=== PATIENT | female | born 1940 | race African-American/Black ===

== ENCOUNTER 2019-08-10 10:11 | Inpatient (IN) ==
[2019-08-10] MEDS ORDERED: GLUCAGON 1 MG VIAL IM PRN (12:13)
[2019-08-10] MEDS ORDERED: DEXTROSE 10% 250 ML BAG IV PRN (12:13)
[2019-08-10] MEDS ORDERED: ONDANSETRON 4 MG/2 ML VIAL IV PRN (12:13)
[2019-08-10 13:21] LABS: Basophils % 0.4 % (0.0-0.8); Eosinophils # 0.1 10*3/uL (0.0-0.87); Eosinophils % 1.7 % (0.00-10.9); Hematocrit 42.5 VOL% (35.7-47.0); Hemoglobin 13.3 GM/DL (12.0-16.0); Immature Granulocytes % 0.4 %; Immature Granulocytes Absolute 0.03 #; Lymphocytes # 1.1 10*3/uL (1.4-4.0); Lymphocytes % 15.3 % (21.3-54.2); Mean Corpuscular HGB Conc 31.3 GM/DL (32-36); Mean Corpuscular Volume 87.8 FL (87-102); Monocytes % 13.4 % (1.7-12.7); Neutrophils % 68.8 % (38.7-73.9); Platelet Count 460 T/CUMM (130-400); Red Blood Count 4.84 MC/CUMM (3.8-5.5); Red Cell Distribution Width 15.1 % (9.3-17.3)
[2019-08-10 13:44] LABS: Alanine Aminotransferase 197 U/L (13-56); Albumin 2.6 G/DL (3.4-5.0); Alkaline Phosphatase 115 U/L (45-117); Aspartate Amino Transferase 65 U/L (0-37); Bilirubin,Total < 0.39 MG/DL (0.2-1.0); Blood Urea Nitrogen 12 MG/DL (7-18); Calcium 9.7 MG/DL (8.5-10.1); Estimated Glom Filtration Rate 94 ML/MIN; Glucose 129 MG/DL (74-106); Osmolality,Calculated 265.5 MOS/KG (273-304); Total Protein 7.8 G/DL (6.4-8.3)
[2019-08-10] MEDS: SODIUM CHLORIDE 0.45% 1,000 ML IV SCH (13:55)
[2019-08-10 15:38] LABS: Apearance,Urine CLEAR (Clear); Bacteria,Urine Occasional /HPF (Few); Bilirubin,Urine Negative (Negative); Blood, Urine Negative (Negative); Glucose,Urine (UA) >=500 mg/dL (Negative); Ketones,Urine Negative (Negative); Nitrite,Urine Negative (Negative); Protein,Urine Negative; RBC,Urine 1 /HPF (0-4); Squamous Epithelial Cell,Urine Occasional /HPF (0-10); Urine Color Yellow (Yellow); Urine Urobilinogen < 2.0 EU/DL (0.2-1.0); WBC,Urine <1 /HPF (0-6)
[2019-08-10] MEDS: INSULIN LISPRO 100 UNIT/ML SUBCUT SCH ×2 (16:19→21:44)
[2019-08-10] MEDS: ENOXAPARIN 40 MG/0.4 ML SYRINGE SUBCUT SCH (21:43)
[2019-08-10] MEDS: DOCUSATE SODIUM 100 MG CAPSULE PO SCH (21:44)
[2019-08-11 06:50] LABS: Risk Ratio 4.19; VLDL CHOLESTEROL 28.2 MG/DL
[2019-08-11] MEDS: INSULIN LISPRO 100 UNIT/ML SUBCUT SCH ×4 (09:12→23:01)
[2019-08-11] MEDS: SODIUM CHLORIDE 0.45% 1,000 ML IV SCH (09:16)
[2019-08-11] MEDS: PANTOPRAZOLE 40 MG TABLET PO SCH (09:17)
[2019-08-11] MEDS: DOCUSATE SODIUM 100 MG CAPSULE PO SCH ×2 (09:17→21:20)
[2019-08-11] MEDS: ENOXAPARIN 40 MG/0.4 ML SYRINGE SUBCUT SCH (21:20)
[2019-08-12] MEDS: SODIUM CHLORIDE 0.45% 1,000 ML IV SCH (05:28)
[2019-08-12] MEDS: INSULIN LISPRO 100 UNIT/ML SUBCUT SCH ×4 (08:50→21:20)
[2019-08-12] MEDS: DOCUSATE SODIUM 100 MG CAPSULE PO SCH ×2 (08:51→21:20)
[2019-08-12] MEDS: PANTOPRAZOLE 40 MG TABLET PO SCH (08:51)
[2019-08-12] MEDS: ENOXAPARIN 40 MG/0.4 ML SYRINGE SUBCUT SCH (21:20)
[2019-08-13] MEDS: SODIUM CHLORIDE 0.45% 1,000 ML IV SCH ×2 (00:35→20:48)
[2019-08-13] MEDS: INSULIN LISPRO 100 UNIT/ML SUBCUT SCH ×4 (08:49→21:07)
[2019-08-13] MEDS: PANTOPRAZOLE 40 MG TABLET PO SCH (08:49)
[2019-08-13] MEDS: DOCUSATE SODIUM 100 MG CAPSULE PO SCH ×2 (08:50→20:48)
[2019-08-13] MEDS: ENOXAPARIN 40 MG/0.4 ML SYRINGE SUBCUT SCH (20:48)
[2019-08-14] MEDS: INSULIN LISPRO 100 UNIT/ML SUBCUT SCH ×4 (07:44→20:30)
[2019-08-14] MEDS: PANTOPRAZOLE 40 MG TABLET PO SCH (08:43)
[2019-08-14] MEDS: DOCUSATE SODIUM 100 MG CAPSULE PO SCH ×2 (08:43→20:30)
[2019-08-14] MEDS: ENOXAPARIN 40 MG/0.4 ML SYRINGE SUBCUT SCH (20:30)
[2019-08-15 08:12] VITALS: BP 138/86
[2019-08-15] MEDS: DOCUSATE SODIUM 100 MG CAPSULE PO SCH (08:48)
[2019-08-15] MEDS: PANTOPRAZOLE 40 MG TABLET PO SCH (08:48)
[2019-08-15] MEDS: SODIUM CHLORIDE 0.45% 1,000 ML IV SCH (19:04)
== END 2019-08-15 11:00 | DRG 92 ==
LOC: N.TELEN 12:27
PROVIDERS: ADMIT Family Medicine; ATTEND Family Medicine